=== PATIENT | male | born 2000 | race Two or more races ===

== ENCOUNTER 2020-08-31 14:26 | Emergency (ER) | payer MEDICAID ==
[~2020-08-31] VITALS: Ht 167.6 cm; Wt 83.9 kg
[2020-08-31 15:13] VITALS: BP 132/72
[2020-08-31] MEDS ORDERED: TETRACAINE HCL 0.5% OPTH(EYE) SOLN 4ML EACHEYE ONE (15:45)
[2020-08-31] MEDS ORDERED: FLUORESCEIN SOD 1 MG TEST STRIP OP ONE (15:45)
== END 2020-08-31 17:07 | disposition home or self-care (01) ==
LOC: ER 14:26
DX: S05.01XA Injury of conjunctiva and corneal abrasion without foreign body, right eye, initial encounter (principal); H10.31 Unspecified acute conjunctivitis, right eye; X58.XXXA Exposure to other specified factors, initial encounter; Y93.89 Activity, other specified; Y92.89 Other specified places as the place of occurrence of the external cause; Y99.8 Other external cause status